=== PATIENT | female | born 1990 | race Caucasian/White ===

== ENCOUNTER 2016-10-25 06:18 | Emergency (ER) | payer OTHER ==
[2016-10-25 06:56] LABS: BASOPHIL 0.2 % (0-2); EOSINOPHIL 0.5 % (0-5); HCT 48.7 % (37.0-47.0); HGB 16.4 g/dl (12.5-16.0); LYMPHOCYTE 13.7 % (15-48); MCH 29.4 pg (25.0-31.0); MCHC 33.7 g/dL (32.0-36.0); MCV 87.4 fL (78.0-100.0); MONOCYTE 4.9 % (0-12); MPV 11.9 fL (6.0-9.5); NEUTROPHIL 80.7 % (41-80); PLT 208 K/uL (150-400); RBC 5.57 M/uL (4.20-5.40); WBC 15.2 K/uL (4.0-10.5)
[2016-10-25 07:01] LABS: INR 0.97 (0.9-1.2); PROTHROMBIN TIME 12.5 SECONDS (11.7-14.0); PTT 25.6 SECONDS (23.2-31.4)
[2016-10-25 07:02] LABS: D-DIMER < 0.27 ug/mLFEU (0.00-0.41)
[2016-10-25 07:10] LABS: ALBUMIN 4.3 g/dL (3.5-5.0); BILIRUBIN - TOTAL 0.4 mg/dL (0.1-1.0); CREATININE 0.6 mg/dL (0.5-1.0); GLOBULIN (CALCULATION) 3.2 g/dL (2.2-4.2); MAGNESIUM 1.73 mg/dL (1.40-2.10); TOTAL PROTEIN 7.5 g/dL (6.4-8.3)
[2016-10-25 07:13] LABS: CKMB 3.83 ng/mL (0.97-4.94); TROPONIN T 0.016 ng/mL
[2016-10-25 16:57] LABS: BILIRUBIN NEGATIVE (NEGATIVE); BLOOD TRACE-INTACT Ery/uL (NEGATIVE); CLARITY CLEAR (CLEAR); COLOR YELLOW (YELLOW); GLUCOSE (U) 3+ mg/dL (NORMAL); KETONE (U) TRACE mg/dL (NEGATIVE); LEUKOCYTES NEGATIVE Leu/uL (NEGATIVE); NITRITE NEGATIVE (NEGATIVE); PROTEIN 2+ mg/dL (NEGATIVE); SPECIFIC GRAVITY 1.025 (1.001-1.030); UROBILINOGEN 0.2 mg/dL (0.2-1.0); pH 5.5 (5.0-9.0)
[2016-10-25 17:07] LABS: AMPHETAMINES POSITIVE (NEGATIVE); BENZODIAZEPINES NEGATIVE (NEGATIVE); COCAINE POSITIVE (NEGATIVE); MARIJUANA (THC) POSITIVE (NEGATIVE)
[2016-10-25 17:08] LABS: BARBITURATES NEGATIVE (NEGATIVE); METHADONE NEGATIVE (NEGATIVE); TRICYCLIC ANTIDEPRESSANT NEGATIVE (NEGATIVE)
[2016-10-25 17:09] LABS: URINARY RBC RARE; URINARY WBC RARE
[2016-10-25 17:10] LABS: YEAST PRESENT
== END 2016-10-25 15:51 | disposition other institution (70) ==
LOC: FER 06:18
PROVIDERS: Emergency Medicine
DX: I21.4 Non-ST elevation (NSTEMI) myocardial infarction (principal); I10 Essential (primary) hypertension; E11.65 Type 2 diabetes mellitus with hyperglycemia; F17.210 Nicotine dependence, cigarettes, uncomplicated; Z98.890 Other specified postprocedural states; Z87.442 Personal history of urinary calculi; Z82.49 Family history of ischemic heart disease and other diseases of the circulatory system
CPT/HCPCS: 36415; 71010; 80053; 80305; 81001; 82550; 82553; 83735; 83874; 83880; 84443; 84484; 85025; 85379; 85610; 85730; 93005; J1170; J1885; J2405

== ENCOUNTER 2016-10-28 22:04 | Emergency (ER) | payer OTHER ==
[2016-10-28 22:43] LABS: BASOPHIL 0.7 % (0-2); EOSINOPHIL 1.4 % (0-5); HGB 16.8 g/dl (12.5-16.0); LYMPHOCYTE 23.4 % (15-48); MCH 29.4 pg (25.0-31.0); MCHC 33.6 g/dL (32.0-36.0); MCV 87.6 fL (78.0-100.0); MONOCYTE 4.8 % (0-12); MPV 11.7 fL (6.0-9.5); NEUTROPHIL 69.7 % (41-80); PLT 230 K/uL (150-400); RBC 5.71 M/uL (4.20-5.40); RDW 12.9 % (11.5-14.0)
[2016-10-28 22:52] LABS: INR 0.93 (0.9-1.2); PROTHROMBIN TIME 12.1 SECONDS (11.7-14.0)
[2016-10-28 23:03] LABS: BILIRUBIN - TOTAL 0.2 mg/dL (0.1-1.0); CREATININE 0.7 mg/dL (0.5-1.0); GLOBULIN (CALCULATION) 3.9 g/dL (2.2-4.2); MAGNESIUM 1.67 mg/dL (1.40-2.10); TOTAL PROTEIN 7.9 g/dL (6.4-8.3)
[2016-10-28 23:05] LABS: CKMB 1.53 ng/mL (0.97-4.94)
[2016-10-28 23:09] LABS: TROPONIN T 0.119 ng/mL
[2016-10-28 23:54] LABS: BILIRUBIN NEGATIVE (NEGATIVE); BLOOD NEGATIVE Ery/uL (NEGATIVE); CLARITY HAZY (CLEAR); COLOR YELLOW (YELLOW); GLUCOSE (U) 3+ mg/dL (NORMAL); KETONE (U) 1+ (SMALL) mg/dL (NEGATIVE); LEUKOCYTES NEGATIVE Leu/uL (NEGATIVE); NITRITE NEGATIVE (NEGATIVE); PROTEIN 2+ mg/dL (NEGATIVE)
[2016-10-28 23:59] LABS: AMYLASE 27 U/L (28-100); LIPASE 26 U/L (13-60)
[2016-10-29 00:05] LABS: AMORPHOUS URATES CRYSTALS TRACE; BACTERIA TRACE; MUCOUS TRACE; SQUAMOUS EPITHELIAL CELLS RARE; URINARY RBC RARE; URINARY WBC RARE
[2016-10-29 00:08] LABS: AMPHETAMINES NEGATIVE (NEGATIVE); BENZODIAZEPINES NEGATIVE (NEGATIVE); COCAINE NEGATIVE (NEGATIVE); MARIJUANA (THC) POSITIVE (NEGATIVE)
[2016-10-29 00:09] LABS: BARBITURATES NEGATIVE (NEGATIVE); METHADONE NEGATIVE (NEGATIVE); TRICYCLIC ANTIDEPRESSANT NEGATIVE (NEGATIVE)
== END 2016-10-29 03:45 | disposition other institution (70) ==
LOC: FER 22:04
PROVIDERS: Emergency Medicine Emergency Medical Services
DX: I25.119 Atherosclerotic heart disease of native coronary artery with unspecified angina pectoris (principal); I25.2 Old myocardial infarction; Z79.82 Long term (current) use of aspirin; Z79.899 Other long term (current) drug therapy; Z98.890 Other specified postprocedural states; Z82.49 Family history of ischemic heart disease and other diseases of the circulatory system
CPT/HCPCS: 36415; 71010; 80053; 80305; 81001; 82150; 82550; 82553; 83690; 83735; 83874; 83880; 84484; 85025; 85610; 85730; 93005; 96372; J1170; J1885; J2270; J2405

== ENCOUNTER 2017-01-09 12:57 | Emergency (ER) | payer OTHER ==
[2017-01-09 13:31] LABS: BILIRUBIN NEGATIVE (NEGATIVE); BLOOD NEGATIVE Ery/uL (NEGATIVE); CLARITY CLEAR (CLEAR); COLOR YELLOW (YELLOW); GLUCOSE (U) 3+ mg/dL (NORMAL); KETONE (U) NEGATIVE (NEGATIVE); LEUKOCYTES TRACE Leu/uL (NEGATIVE); NITRITE NEGATIVE (NEGATIVE); PROTEIN 2+ mg/dL (NEGATIVE); SPECIFIC GRAVITY 1.025 (1.001-1.030)
[2017-01-09 13:39] LABS: BACTERIA 1+; URINARY WBC RARE; YEAST PRESENT
[2017-01-09 13:39] LABS: BASOPHIL 0.3 % (0-2); EOSINOPHIL 1.3 % (0-5); HCT 49.3 % (37.0-47.0); HGB 16.6 g/dl (12.5-16.0); LYMPHOCYTE 18.6 % (15-48); MCH 29.3 pg (25.0-31.0); MCHC 33.7 g/dL (32.0-36.0); MCV 87.1 fL (78.0-100.0); MONOCYTE 5.3 % (0-12); MPV 11.5 fL (6.0-9.5); NEUTROPHIL 74.5 % (41-80); PLT 212 K/uL (150-400); RBC 5.66 M/uL (4.20-5.40); RDW 13.1 % (11.5-14.0); WBC 12.1 K/uL (4.0-10.5)
[2017-01-09 13:58] LABS: ALBUMIN 3.8 g/dL (3.5-5.0); BILIRUBIN - TOTAL 0.4 mg/dL (0.1-1.0); CREATININE 0.5 mg/dL (0.5-1.0); GLOBULIN (CALCULATION) 3.7 g/dL (2.2-4.2); POTASSIUM 4.2 mmol/L (3.5-5.1); TOTAL PROTEIN 7.5 g/dL (6.4-8.3)
== END 2017-01-09 16:36 | disposition home or self-care (01) ==
LOC: FER 12:57
PROVIDERS: Nurse Practitioner
DX: B37.3 Candidiasis of vulva and vagina (principal); E11.9 Type 2 diabetes mellitus without complications; N20.0 Calculus of kidney; N83.202 Unspecified ovarian cyst, left side; K43.6 Other and unspecified ventral hernia with obstruction, without gangrene
CPT/HCPCS: 36415; 80053; 81001; 85025; J2270; J2405; Q9967

== ENCOUNTER → 2017-02-03 | Day surgery (SDC) | payer OTHER ==
[~2017-02-03] VITALS: Ht 172.7 cm; Wt 126.8 kg
== END | disposition home or self-care (01) ==
LOC: FAS 08:15
DX: K43.2 Incisional hernia without obstruction or gangrene (principal); K66.0 Peritoneal adhesions (postprocedural) (postinfection); E66.9 Obesity, unspecified; Z68.41 Body mass index [BMI] 40.0-44.9, adult; I10 Essential (primary) hypertension; E78.00 Pure hypercholesterolemia, unspecified; F17.210 Nicotine dependence, cigarettes, uncomplicated; E11.65 Type 2 diabetes mellitus with hyperglycemia; Z88.5 Allergy status to narcotic agent
CPT/HCPCS: 84703; J0690; J1170; J1885; J2405; J2704; J2710; J3010

== ENCOUNTER 2021-03-31 00:50 | Emergency (ER) | payer OTHER ==
[~2021-03-31 00:50] MED LIST: BACTRIM DS TAB1 EACH PO; DIFLUCAN150 MG PO; FLEXERIL10 MG PO; GLUCOPHAGE850 MG PO; HYDRALAZINE25 MG PO; LEXAPRO 10MG TA10 MG PO; LOPRESSOR25 MG PO; METFORMIN HCL500 MG PO; NAPROXEN500 MG PO; PERCOCET 5-3251 EACH PO; TOPROL XL 25MG25 MG PO; ZOVIRAX200 MG PO
[2021-03-31 01:33] LABS: BASOPHIL 0.9 % (0-2); EOSINOPHIL 1.3 % (0-5); HCT 47.7 % (37.0-47.0); HGB 15.6 g/dl (12.5-16.0); LYMPHOCYTE 26.7 % (15-48); MCH 28.4 pg (25.0-31.0); MCHC 32.7 g/dL (32.0-36.0); MCV 86.9 fL (78.0-100.0); MONOCYTE 7.6 % (0-12); MPV 11.6 fL (6.0-9.5); NEUTROPHIL 63.3 % (41-80); NRBC 0; PLT 191 K/uL (150-400); RBC 5.49 M/uL (4.20-5.40); RDW 12.7 % (11.5-14.0); WBC 9.2 K/uL (4.0-10.5)
[2021-03-31 01:49] LABS: ALBUMIN 3.3 g/dL (3.4-5.0); BILIRUBIN - TOTAL 0.3 mg/dL (0.2-1.0); CREATININE 0.7 mg/dL (0.51-0.95); GLOBULIN (CALCULATION) 5.3 g/dL; POTASSIUM 3.7 mmol/L (3.5-5.1); TOTAL PROTEIN 8.6 g/dL (6.4-8.2)
[2021-03-31 01:56] LABS: PRO-BNP 681 pg/mL (<125)
== END 2021-03-31 04:58 | disposition home or self-care (01) ==
LOC: FER 00:50
PROVIDERS: Emergency Medicine
DX: R07.89 Other chest pain (principal); R51.9 Headache, unspecified; I10 Essential (primary) hypertension; F17.200 Nicotine dependence, unspecified, uncomplicated
CPT/HCPCS: 36415; 70450; 71045; 71275; 80053; 83880; 84484; 85025; 85379; 93005; J0780; J1200; J1885; J3490; Q9967

== ENCOUNTER 2021-06-28 18:25 | Emergency (ER) | payer OTHER ==
[2021-06-28 21:55] LABS: BASOPHIL 0.5 % (0-2); EOSINOPHIL 1.5 % (0-5); HCT 43.7 % (37.0-47.0); HGB 13.9 g/dl (12.5-16.0); LYMPHOCYTE 14.9 % (15-48); MCH 28.5 pg (25.0-31.0); MCHC 31.8 g/dL (32.0-36.0); MCV 89.5 fL (78.0-100.0); MONOCYTE 5.3 % (0-12); MPV 11.4 fL (6.0-9.5); NEUTROPHIL 76.8 % (41-80); NRBC 0; PLT 242 K/uL (150-400); RBC 4.88 M/uL (4.20-5.40); RDW 13.5 % (11.5-14.0); WBC 12.6 K/uL (4.0-10.5)
[2021-06-28 22:14] LABS: ALBUMIN 3.1 g/dL (3.4-5.0); BILIRUBIN - TOTAL 0.2 mg/dL (0.2-1.0); BUN/CREAT RATIO (CALC) 35.2 RATIO; CREATININE 0.54 mg/dL (0.51-0.95); GLOBULIN (CALCULATION) 4.7 g/dL; POTASSIUM 4.6 mmol/L (3.5-5.1); TOTAL PROTEIN 7.8 g/dL (6.4-8.2)
== END 2021-06-29 04:30 | disposition other institution (70) ==
LOC: FER 18:25
PROVIDERS: Internal Medicine
DX: E11.621 Type 2 diabetes mellitus with foot ulcer (principal); L89.892 Pressure ulcer of other site, stage 2; L89.893 Pressure ulcer of other site, stage 3; M86.9 Osteomyelitis, unspecified; I10 Essential (primary) hypertension; F17.210 Nicotine dependence, cigarettes, uncomplicated; Z79.84 Long term (current) use of oral hypoglycemic drugs; Z79.899 Other long term (current) drug therapy; Z20.822 Contact with and (suspected) exposure to COVID-19
CPT/HCPCS: 36415; 73700; 80053; 83605; 84145; 85025; J1170; J2405; J2543; J2550; J3370; J7050; U0002

== ENCOUNTER 2022-03-31 17:49 | Emergency (ER) | payer OTHER ==
[2022-03-31 19:14] LABS: BASOPHIL 0.8 % (0-2); HCT 44.4 % (37.0-47.0); HGB 14.6 g/dl (12.5-16.0); LYMPHOCYTE 16.9 % (15-48); MCHC 32.9 g/dL (32.0-36.0); MCV 91.4 fL (78.0-100.0); MONOCYTE 4.8 % (0-12); MPV 11.4 fL (6.0-9.5); NEUTROPHIL 75.7 % (41-80); NRBC 0; PLT 305 K/uL (150-400); RBC 4.86 M/uL (4.20-5.40); WBC 11.9 K/uL (4.0-10.5)
[2022-03-31 19:31] LABS: ALBUMIN 3.5 g/dL (3.4-5.0); BILIRUBIN - TOTAL 0.3 mg/dL (0.2-1.0); BUN/CREAT RATIO (CALC) 22.7 RATIO; CREATININE 0.66 mg/dL (0.51-0.95); GLOBULIN (CALCULATION) 5.8 g/dL; POTASSIUM 4.2 mmol/L (3.5-5.1); TOTAL PROTEIN 9.3 g/dL (6.4-8.2)
== END 2022-03-31 23:55 | disposition home or self-care (01) ==
LOC: FER 17:49
PROVIDERS: Emergency Medicine
DX: R07.89 Other chest pain (principal); E11.65 Type 2 diabetes mellitus with hyperglycemia; I10 Essential (primary) hypertension; F17.200 Nicotine dependence, unspecified, uncomplicated; E66.9 Obesity, unspecified
CPT/HCPCS: 36415; 71045; 71275; 80053; 84484; 85025; 85379; 93005; J1170; J7030; Q9967